=== PATIENT | male | born 1965 | race Caucasian/White ===

== ENCOUNTER 2017-10-25 20:06 | Inpatient (IN) | payer OTHER ==
[2017-10-25 20:42] VITALS: BMI 25.0
[2017-10-25] MEDS ORDERED: METHADONE HCL 10 MG TABLET (FOR DETOX USE ONLY) PO ONE ×2 (23:00→23:17)
--- NOTE | 2017-10-25 23:06 | HP ---
COWS - Scale Resting Pulse: 1= [place] 81-100 Sweatin=Flushed/Facial Moisture Restless Observation: 3= Extraneous Movement Pupil Size: 1= Pupils >than Normal Bone or Joint Aches: 1= Mild Discomfort Runny Nose/ Eye Tearin= Runny Nose/Eyes GI Upset > 30mins: 3= Vomiting/Diarrhea Tremor Observation: 2= Slight Tremor Visible Yawning Observation: 1= 1-2x During Session Anxiety or Irritability: 2=Irritable/Anxious Goose Flesh Skin: 3=Piloerection COWS Score: 21 CIWA Score - CIWA Score Nausea/Vomitin Muscle Tremors: 4-Moderate,w/Arms Extend Anxiety: 4-Mod. Anxious/Guarded Agitation: 3 Paroxysmal Sweats: 4-Forehead w/Sweat Beads Orientation: 1-Uncertain about Date Tacttile Disturbances: 0-None Auditory Disturbances: 2-Mild Harshness/Frighten Visual Disturbances: 2-Mild Sensitivity Headache: 4-Moderately Severe CIWA-Ar Total Score: 27 Admission [facility] - HPI Chief Complaint: "I dont feel well, I feel sick, I am going through withdrawal" Allergies/Adverse Reactions: Allergies Allergy/AdvReac Type Severity Reaction Status Date / Time No Known Allergies Allergy Verified 09/21/15 09:18 History of Present Illness: 52 yo male with hx of heroin, cocaine, nicotine and alcohol dependence is here seeking detox. PMHX: left hip replacement, unsteady gait, urinary incontinence , BPH, depression, anxiety, HTN and GERD, +HIV CD4: 432. Denies suicidal / homicidal ideation, last suicide attempt three years ago. Longest period of sobriety 3 years. Last detox at [facility] 2015. Exam Limitations: No Limitations - Ebola screening Have you traveled outside of the country in the last 21 days: No Have you had contact with anyone from an Ebola affected area: No Have you been sick,other than usual withdrawal symptoms: No Do you have a fever: Yes - Review of Systems Constitutional: Chills, Loss of Appetite, Changes in sleep, Weakness, Unintentional Wgt. Loss (25 lbs) EENT: reports: Double Vision, Other (reports gets lock jaw when withdrawing from heroin) Respiratory: reports: No Symptoms reported Cardiac: reports: No Symptoms Reported GI: reports: Nausea, Poor Appetite, Poor Fluid Intake, Vomiting : reports: Incontinence (wears diapers at night) Musculoskeletal: reports: Back Pain, Other (uses a power chair to get around outdoors) Integumentary: reports: Other (skin lesions from skin irritaiton pn face) Neuro: reports: No Symptoms reported Hematology: reports: No Symptoms Reported Psychiatric: reports: Orientated x3, Agitated, Anxious, Depressed Other Systems: Reviewed and Negative Patient History - Patient Medical History Hx Anemia: No Hx Asthma: No Hx Chronic Obstructive Pulmonary Disease (COPD): No Hx Cancer: No Hx Cardiac Disorders: No Hx Congestive Heart Failure: No Hx Hypertension: No Hx Hypercholesterolemia: No Hx Pacemaker: No HX Cerebrovascular Accident: No Hx Seizures: No Hx Dementia: No Hx Diabetes: No Hx Gastrointestinal Disorders: Yes (GERD ON NEXIUM) Hx Liver Disease: No Hx Genitourinary Disorders: No Hx Sexually Transmitted Disorders: No Hx Renal Disease (ESRD): No Hx Thyroid Disease: No Hx Human Immunodeficiency Virus (HIV): No (NEGATIVE HX) Hx Hepatitis C: No Hx Depression: Yes Hx Suicide Attempt: No (DENIES) Hx Bipolar Disorder: No Hx Schizophrenia: No - Patient Surgical History Past Surgical History: Yes Hx Neurologic Surgery: No Hx Cataract Extraction: No Hx Cardiac Surgery: No Hx Lung Surgery: No Hx Breast Surgery: No Hx Breast Biopsy: No Hx Abdominal Surgery: No Hx Appendectomy: No Hx Cholecystectomy: No Hx Genitourinary Surgery: No Hx Section: No Hx Orthopedic Surgery: Yes (LEFT HIP REPLACEMENT SURGERY 01/2015) Hx Hysterectomy: No Anesthesia Reaction: No - PPD History Previous Implant?: Yes Documented Results: Negative w/o proof Date: 09/23/15 PPD to be Administered?: Yes - Reproductive History Patient is a Female of Child Bearing Age (11 -55 yrs old): No - Smoking Cessation Smoking history: Current every day smoker Have you smoked in the past 12 months: Yes Aproximately how many cigarettes per day: 6 Hx Chewing Tobacco Use: No Initiated information on smoking cessation: Yes 'Breaking Loose' booklet given: 10/25/17 - Substance & Tx. History Hx Alcohol Use: Yes Substance Use Type: Alcohol, Cocaine, Heroin Hx Substance Use Treatment: Yes ([facility] 2015) Family Disease History - Family Disease History Family History: Unremarkable Admission Physical Exam BHS - Vital Signs Vital Signs: Vital Signs - 24 hr 10/25/17 20:40 Temperature 97.2 F L Pulse Rate 97 H Respiratory 20 Rate Blood Pressure 136/77 - Physical General Appearance: Yes: Mild Distress, Tremorous, Irritable, Sweating, Anxious HEENTM: Yes: EOMI, Hearing grossly Normal, Normal ENT Inspection, Normocephalic , Normal Voice, Pharynx Normal, Tm's normal, Other (uses glasses) Respiratory: Yes: Chest Non-Tender, Lungs Clear, Normal Breath Sounds, No Respiratory Distress, No Accessory Muscle Use Neck: Yes: No masses,lesions,Nodules, Trachea in good position Breast: Yes: Breast Exam Deferred Cardiology: Yes: Within Normal Limits, Regular Rhythm, Regular Rate, S1, S2 Abdominal: Yes: Normal Bowel Sounds, Non Tender, Flat, Soft Genitourinary: Yes: Within Normal Limits Back: Yes: Normal Inspection Musculoskeletal: Yes: Joint Stiffness (left hip), Other (unsteady gait) Extremities: Yes: Normal Capillary Refill, Normal Inspection, Non-Tender Neurological: Yes: manager procurement II-XII NML intact, Fully Oriented, Motor Strength 5/5, Depressed Affect Integumentary: Yes: Normal Color, Dry, Warm, Other (multiple lesion on face in different healing pattern) Lymphatic: Yes: Within Normal Limits - Diagnostic (1) Difficulty walking Current Visit: Yes Status: Acute (2) HTN (hypertension) Current Visit: Yes Status: Acute Qualifiers: Hypertension type: essential hypertension Qualified Code(s): I10 - Essential (primary) hypertension (3) HIV (human immunodeficiency virus infection) Current Visit: Yes Status: Chronic (4) BPH (benign prostatic hyperplasia) Current Visit: Yes Status: Acute Qualifiers: Lower urinary tract symptom detail: unspecified (5) Urinary incontinence Current Visit: Yes Status: Chronic Qualifiers: Urinary Incontinence type: unspecified incontinence Qualified Code(s): R32 - Unspecified urinary incontinence (6) Skin lesion of face Current Visit: Yes Status: Acute (7) Opioid dependence with withdrawal Current Visit: Yes Status: Acute (8) GERD (gastroesophageal reflux disease) Current Visit: Yes Status: Chronic Qualifiers: Esophagitis presence: without esophagitis Qualified Code(s): K21.9 - Gastro -esophageal reflux disease without esophagitis (9) History of left hip replacement Current Visit: Yes Status: Chronic (10) Alcohol dependence with withdrawal Current Visit: Yes Status: Acute Qualifiers: Complication of substance-induced condition: uncomplicated Qualified Code(s ): F10.230 - Alcohol dependence with withdrawal, uncomplicated (11) Chronic pain Current Visit: Yes Status: Chronic Cleared for Admission BHS - Detox or Rehab Detox Regimen/Protocol: Methadone/Librium BHS Breath Alcohol Content Breath Alcohol Content: 0 Urine Drug Screen - Results Drug Screen Negative: Yes Urine Drug Screen Results: MARIANNE-Cocaine, OPI-Opiates, MTD-Methadone, TCA- Tricyclic Antidepress, OXY-Oxycodone
[2017-10-25] MEDS ORDERED: ACETAMINOPHEN 325 MG TABLET (FP) PO PRN (23:17)
[2017-10-25] MEDS ORDERED: MENTHOL/PHENOL 1 EACH UD MM PRN (23:17)
[2017-10-25] MEDS ORDERED: MAGNESIUM CITRATE 300 ML BOTTLE PO PRN (23:17)
[2017-10-25] MEDS ORDERED: NICOTINE POLACRILEX 2 MG GUM BC PRN (23:17)
[2017-10-25] MEDS ORDERED: chlordiazePOXIDE HCL 25 MG CAPSULE PO ONE (23:17)
[2017-10-25] MEDS ORDERED: MAGNESIUM HYDROX 2400MG/30ML ORAL SUSPENSION 30 ML CUP PO PRN (23:17)
[2017-10-25] MEDS ORDERED: guaiFENesin/D-METHORPHAN HB 10 ML UNIT-DOSE CUPS PO PRN (23:17)
[2017-10-25] MEDS ORDERED: LOPERAMIDE HCL 2 MG CAPSULE PO PRN (23:17)
[2017-10-25] MEDS ORDERED: P-EPHED 60MG/TRIPROLIDI 2.5MG TABLET PO PRN (23:17)
[2017-10-25] MEDS ORDERED: IBUPROFEN 400 MG TABLET (FP) PO PRN (23:17)
[2017-10-26] MEDS: chlordiazePOXIDE HCL 25 MG CAPSULE PO SCH ×5 (00:37→22:05)
[2017-10-26] MEDS: BACITRACIN 15 GM TUBE TOPICAL OINTMENT TP SCH ×3 (01:31→22:05)
[2017-10-26 02:23] LABS: URINE APPEARANCE CLEAR; URINE BILIRUBIN NEGATIVE (NEGATIVE); URINE BLOOD NEGATIVE (NEGATIVE); URINE COLOR YELLOW; URINE GLUCOSE (UA) NEGATIVE (NEGATIVE); URINE KETONE TRACE (NEGATIVE); URINE LEUK ESTERASE NEGATIVE (NEGATIVE); URINE NITRITE NEGATIVE (NEGATIVE)
[2017-10-26 02:31] LABS: URINE PROTEIN 1+ (NEGATIVE)
[2017-10-26 02:34] LABS: CALCIUM OXALATE CRYSTALS RARE /hpf (NONE SEEN); EPI CELLS RARE /HPF (FEW); URINE MUCUS FEW
[2017-10-26] MEDS ORDERED: BACITRACIN 0.9 GM PACKET ONE (09:19)
--- NOTE | 2017-10-26 09:39 | PN ---
[facility] CIWA - CIWA Score Nausea/Vomitin Muscle Tremors: 3 Anxiety: 3 Agitation: 3 Paroxysmal Sweats: 1-Minimal Palms Moist Orientation: 0-Oriented Tacttile Disturbances: 1-Very Mild Itch/Numbness Auditory Disturbances: 1-Very Mild Visual Disturbances: 0-None Headache: 2-Mild CIWA-Ar Total Score: 17 BHS COWS - Scale Resting Pulse: 0= NE 80 or Below Sweatin= Chills/Flushing Restless Observation: 3= Extraneous Movement Pupil Size: 1= Pupils >than Normal Bone or Joint Aches: 2= Severe Diffuse Aches Runny Nose/ Eye Tearin= Runny Nose/Eyes GI Upset > 30mins: 3= Vomiting/Diarrhea Tremor Observation of Outstretched Hands: 2= Slight Tremor Visible Yawning Observation: 1= 1-2x During Session Anxiety or Irritability: 2=Irritable/Anxious Goose Flesh Skin: 0=Smooth Skin COWS Score: 17 [facility] Progress Note (SOAP) Subjective: ALERT,IRRITABLE,ANXIOUS,INTERRUPTED SLEEP,TREMOR,PAIN IN THE BODY AND BACK Objective: 10/26/17 09:37 Vital Signs Temperature 98.2 F 10/26/17 06:00 Pulse Rate 72 10/26/17 06:00 Respiratory Rate 18 10/26/17 06:00 Blood Pressure 145/83 10/26/17 06:00 O2 Sat by Pulse Oximetry (%) 10/26/17 09:37 EKG NSR,PROLONG QT NO CHEST PAIN,NO SOB,NO DIZZINESS 10/26/17 09:38 Laboratory Last Values Urine Color Yellow 10/25/17 20:00 Urine Appearance Clear 10/25/17 20:00 Urine pH 6.0 (5.0-8.0) 10/25/17 20:00 Ur Specific [place] 1.019 (1.001-1.035) 10/25/17 20:00 Urine Protein 1+ (NEGATIVE) H 10/25/17 20:00 Urine Glucose (UA) Negative (NEGATIVE) 10/25/17 20:00 Urine Ketones Trace (NEGATIVE) H 10/25/17 20:00 Urine Blood Negative (NEGATIVE) 10/25/17 20:00 Urine Nitrite Negative (NEGATIVE) 10/25/17 20:00 Urine Bilirubin Negative (NEGATIVE) 10/25/17 20:00 Urine Urobilinogen 2.0 mg/dL (0.2-1.0) 10/25/17 20:00 Ur Leukocyte Esterase Negative (NEGATIVE) 10/25/17 20:00 Urine WBC (Auto) 2 /hpf (3-5) 10/25/17 20:00 Urine RBC (Auto) 3 /hpf (0-3) 10/25/17 20:00 Ur Epithelial Cells Rare /HPF (FEW) 10/25/17 20:00 Calcium Oxalate Crystal Rare /hpf (NONE SEEN) 10/25/17 20:00 Urine Mucus Few 10/25/17 20:00 LABS PENDING Assessment: 10/26/17 09:38 WITHDRAWAL SYMPTOM Plan: CONTINUE DETOX
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
[2017-10-26] MEDS ORDERED: METHADONE HCL 10 MG TABLET (FOR DETOX USE ONLY) PO SCH (10:00)
[2017-10-26] MEDS ORDERED: OXYBUTYNIN CHLORIDE 5 MG TABLET PO SCH (10:00)
[2017-10-26] MEDS: TAMSULOSIN HCL 0.4 MG CAP.ER.24H (FP) PO SCH (10:04)
[2017-10-26] MEDS: NAPROXEN 500 MG TABLET (FP) PO SCH ×2 (10:04→22:05)
[2017-10-26] MEDS: amLODIPine BESYLATE 10 MG TABLET (FP) PO SCH (10:04)
[2017-10-26] MEDS: RANITIDINE HCL 150 MG TABLET (FP) PO SCH (10:04)
[2017-10-26] MEDS: PRENATAL VITAMINS W/ FOLIC ACID TABLET (FP) PO SCH (10:04)
[2017-10-26] MEDS: NICOTINE 14 MG/24 HOURS TOPICAL PATCH TD SCH (10:09)
[2017-10-26 10:33] LABS: HEMATOCRIT 31.1 % (35.4-49); MCH 29.1 pg (25.7-33.7); MCHC 32.3 g/dl (32.0-35.9); MEAN CELL VOLUME 90.2 fl (80-96); PLATELET COUNT 249 K/MM3 (134-434); RBC 3.44 M/mm3 (4.00-5.60); RDW 14.5 % (11.9-15.9); WHITE BLOOD COUNT 5.8 K/mm3 (4.0-10.0)
[2017-10-26 11:10] LABS: CHLORIDE 107 mmol/L (98-107); POTASSIUM 3.5 mmol/L (3.5-5.1); SODIUM 143 mmol/L (136-145)
[2017-10-26] MEDS: ELVITEG/COB/EMTRI/TENOF (GENVOYA) TABLET (NF) PO SCH (11:11)
[2017-10-26 11:25] LABS: ALBUMIN 3.7 g/dl (3.4-5.0); ALK PHOS 74 U/L (45-117); ANION GAP 8 (8-16); BILIRUBIN,TOTAL 0.4 mg/dL (0.2-1.0); BLOOD UREA NITROGEN 15 mg/dL (7-18); CALCIUM 8.8 mg/dL (8.5-10.1); CO2 28 mmol/L (21-32); CREATININE 0.8 mg/dL (0.7-1.3); GLUCOSE,RANDOM 84 mg/dL (74-106); SGOT/AST 33 U/L (15-37); SGPT/ALT 29 U/L (12-78); TOT PROT 6.8 g/dl (6.4-8.2)
--- NOTE | 2017-10-26 11:48 | CONSULT ---
[facility] Psychiatric Consult - Data Date of interview: 10/26/17 Admission source: [facility] Identifying data: This is 52 yo male single father of nine, living alone, on SSI , with history of psychiatric hospitalizations intoxicated with heroin, cocaine , nicotine and alcohol is here seeking detox. Substance Abuse History: - Smoking Cessation. Smoking history: Current every day smoker. Have you smoked in the past 12 months: Yes. Aproximately how many cigarettes per day: 6. Hx Chewing Tobacco Use: No. Initiated information on smoking cessation: Yes. 'Breaking Loose' booklet given: 10/25/17. - Substance & Tx. History. Hx Alcohol Use: Yes. Substance Use Type: Alcohol, Cocaine, Heroin. Hx Substance Use Treatment: Yes ([facility] 2016). Urine Drug Screen Results : MARIANNE-Cocaine, OPI-Opiates, MTD-Methadone, TCA-Tricyclic Antidepress, OXY- Oxycodone Medical History: Patient reports left hip replacement, unsteady gait, urinary incontinence, BPH, HTN and GERD, +HIV CD4: 432. Psychiatric History: Cristian villasenor history of depression, reports suicidal history and psychiatric admission on [address]. Denies suicidal / homicidal ideation, last suicide attempt three years ago. Longest period of sobriety 3 years. Last detox at [facility] 2016. Physical/Sexual Abuse/Trauma History: Denies Additional Comment: Urine Drug Screen Results: MARIANNE-Cocaine, OPI-Opiates, MTD- Methadone, TCA-Tricyclic Antidepress, OXY-Oxycodone. Ambien 10mg po qhs Mental Status Exam - Mental Status Exam Alert and Oriented to: Person Cognitive Function: Fair Patient Appearance: Unkempt Mood: Sad Affect: Flat Patient Behavior: Sedated Speech Pattern: Delayed Voice Loudness: Mildly Soft/Quiet Thought Process: Circumstantial Thought Disorder: Being Controlled Hallucinations: Denies Suicidal Ideation: Denies Homicidal Ideation: Denies Insight/Judgement: Fair Sleep: Difficulty falling asleep Appetite: Fair Muscle strength/Tone: Mild Hypotonicity Gait/Station: Shuffling Additional Comments: Ambien 10mg po qhs Psychiatric Findings - Problem List ([place] 1, 2,3) (1) Alcohol dependence with withdrawal Current Visit: Yes Status: Acute Qualifiers: Complication of substance-induced condition: uncomplicated Qualified Code(s ): F10.230 - Alcohol dependence with withdrawal, uncomplicated (2) Opioid dependence with withdrawal Current Visit: Yes Status: Acute (3) GERD (gastroesophageal reflux disease) Current Visit: Yes Status: Chronic Qualifiers: Esophagitis presence: without esophagitis Qualified Code(s): K21.9 - Gastro -esophageal reflux disease without esophagitis (4) History of left hip replacement Current Visit: Yes Status: Chronic (5) Cocaine dependence with withdrawal Current Visit: No Status: Acute (6) Decreased ambulation status Current Visit: No Status: Chronic Comment: AMBULATES WITH ASSISTIVE DEVICE-- [facility]. - Initial Treatment Plan Initial Treatment Plan: Ambien 10mg po qhs
[2017-10-26] MEDS: SILVER SULFADIAZINE 1% TOP CREAM 50 GM JAR TP SCH ×2 (13:42→22:07)
--- NOTE | 2017-10-26 17:13 | EKG ---
Test Reason : Blood Pressure : / mmHG Vent. Rate : 065 BPM Atrial Rate : 065 BPM P-R Int : 144 ms QRS Dur : 076 ms QT Int : 462 ms P-R-T Axes : 079 044 037 degrees QTc Int : 480 ms NORMAL SINUS RHYTHM PROLONGED QT ABNORMAL ECG NO PREVIOUS ECGS AVAILABLE Confirmed by MOISE HSIEH, SEBASTIEN ([id number]) on 10/26/2017 5:12:42 PM Referred By: Confirmed By:SEBASTIEN PHIPPS MD
[2017-10-26] MEDS: chlordiazePOXIDE HCL 25 MG CAPSULE PO PRN (20:55)
[2017-10-26] MEDS: THIAMINE HCL 100 MG TABLET (FP) PO SCH (22:05)
[2017-10-26] MEDS: ZOLPIDEM TARTRATE 10 MG TABLET (PARK CARE ONLY) PO PRN (22:05)
[2017-10-27] MEDS: chlordiazePOXIDE HCL 25 MG CAPSULE PO PRN ×2 (02:54→12:05)
[2017-10-27] MEDS: chlordiazePOXIDE HCL 25 MG CAPSULE PO SCH ×3 (05:33→17:14)
[2017-10-27] MEDS: TAMSULOSIN HCL 0.4 MG CAP.ER.24H (FP) PO SCH (09:35)
[2017-10-27] MEDS: RANITIDINE HCL 150 MG TABLET (FP) PO SCH (10:03)
[2017-10-27] MEDS: NAPROXEN 500 MG TABLET (FP) PO SCH ×2 (10:03→22:11)
[2017-10-27] MEDS: amLODIPine BESYLATE 10 MG TABLET (FP) PO SCH (10:03)
[2017-10-27] MEDS: METHADONE HCL 5 MG TABLET (FOR DETOX USE ONLY) PO SCH (10:03)
[2017-10-27] MEDS: ELVITEG/COB/EMTRI/TENOF (GENVOYA) TABLET (NF) PO SCH (10:03)
[2017-10-27] MEDS: PRENATAL VITAMINS W/ FOLIC ACID TABLET (FP) PO SCH (10:03)
[2017-10-27] MEDS: BACITRACIN 15 GM TUBE TOPICAL OINTMENT TP SCH ×2 (10:05→22:10)
[2017-10-27] MEDS: NICOTINE 14 MG/24 HOURS TOPICAL PATCH TD SCH (10:05)
[2017-10-27] MEDS: SILVER SULFADIAZINE 1% TOP CREAM 50 GM JAR TP SCH ×2 (10:05→22:14)
--- NOTE | 2017-10-27 10:31 | PN ---
[facility] CIWA - CIWA Score Nausea/Vomitin-No Nausea/No Vomiting Muscle Tremors: 4-Moderate,w/Arms Extend Anxiety: 3 Agitation: 3 Paroxysmal Sweats: 1-Minimal Palms Moist Orientation: 0-Oriented Tacttile Disturbances: 1-Very Mild Itch/Numbness Auditory Disturbances: 0-None Visual Disturbances: 0-None Headache: 1-Very Mild CIWA-Ar Total Score: 13 BHS COWS - Scale Resting Pulse: 1= [place] 81-100 Sweatin= Chills/Flushing Restless Observation: 3= Extraneous Movement Pupil Size: 0= Normal to Room Light Bone or Joint Aches: 2= Severe Diffuse Aches Runny Nose/ Eye Tearin= Runny Nose/Eyes GI Upset > 30mins: 1= Stomach Cramp Tremor Observation of Outstretched Hands: 2= Slight Tremor Visible Yawning Observation: 0= None Anxiety or Irritability: 2=Irritable/Anxious Goose Flesh Skin: 0=Smooth Skin COWS Score: 14 S Progress Note (SOAP) Subjective: sweat tremor anxiety joint ache mild GI upset restlessness irritable Objective: 10/27/17 10:28 Vital Signs Temperature 98.1 F 10/27/17 09:47 Pulse Rate 81 10/27/17 09:47 Respiratory Rate 18 10/27/17 09:47 Blood Pressure 130/86 10/27/17 09:47 O2 Sat by Pulse Oximetry (%) Laboratory Last Values WBC 5.8 K/mm3 (4.0-10.0) D 10/26/17 08:00 RBC 3.44 M/mm3 (4.00-5.60) L 10/26/17 08:00 Hgb 10.0 GM/dL (11.7-16.9) L 10/26/17 08:00 Hct 31.1 % (35.4-49) L 10/26/17 08:00 MCV 90.2 fl (80-96) 10/26/17 08:00 MCH 29.1 pg (25.7-33.7) 10/26/17 08:00 MCHC 32.3 g/dl (32.0-35.9) 10/26/17 08:00 RDW 14.5 % (11.9-15.9) 10/26/17 08:00 Plt Count 249 K/MM3 (134-434) D 10/26/17 08:00 MPV 8.0 fl (7.5-11.1) 10/26/17 08:00 Sodium 143 mmol/L (136-145) 10/26/17 08:00 Potassium 3.5 mmol/L (3.5-5.1) 10/26/17 08:00 Chloride 107 mmol/L (98-107) 10/26/17 08:00 Carbon Dioxide 28 mmol/L (21-32) 10/26/17 08:00 Anion Gap 8 (8-16) 10/26/17 08:00 BUN 15 mg/dL (7-18) 10/26/17 08:00 Creatinine 0.8 mg/dL (0.7-1.3) 10/26/17 08:00 Creat Clearance w eGFR > 60 (>60) 10/26/17 08:00 Random Glucose 84 mg/dL (74-106) D 10/26/17 08:00 Calcium 8.8 mg/dL (8.5-10.1) 10/26/17 08:00 Total Bilirubin 0.4 mg/dL (0.2-1.0) D 10/26/17 08:00 AST 33 U/L (15-37) D 10/26/17 08:00 ALT 29 U/L (12-78) 10/26/17 08:00 Alkaline Phosphatase 74 U/L (45-117) D 10/26/17 08:00 Total Protein 6.8 g/dl (6.4-8.2) D 10/26/17 08:00 Albumin 3.7 g/dl (3.4-5.0) 10/26/17 08:00 Urine Color Yellow 10/25/17 20:00 Urine Appearance Clear 10/25/17 20:00 Urine pH 6.0 (5.0-8.0) 10/25/17 20:00 Ur Specific [place] 1.019 (1.001-1.035) 10/25/17 20:00 Urine Protein 1+ (NEGATIVE) H 10/25/17 20:00 Urine Glucose (UA) Negative (NEGATIVE) 10/25/17 20:00 Urine Ketones Trace (NEGATIVE) H 10/25/17 20:00 Urine Blood Negative (NEGATIVE) 10/25/17 20:00 Urine Nitrite Negative (NEGATIVE) 10/25/17 20:00 Urine Bilirubin Negative (NEGATIVE) 10/25/17 20:00 Urine Urobilinogen 2.0 mg/dL (0.2-1.0) 10/25/17 20:00 Ur Leukocyte Esterase Negative (NEGATIVE) 10/25/17 20:00 Urine WBC (Auto) 2 /hpf (3-5) 10/25/17 20:00 Urine RBC (Auto) 3 /hpf (0-3) 10/25/17 20:00 Ur Epithelial Cells Rare /HPF (FEW) 10/25/17 20:00 Calcium Oxalate Crystal Rare /hpf (NONE SEEN) 10/25/17 20:00 Urine Mucus Few 10/25/17 20:00 RPR Titer Nonreactive (NONREACTIVE) 10/26/17 08:00 Hepatitis C Antibody >11.0 s/co ratio (0.0-0.9) H 10/26/17 08:00 lab noted 10/27/17 10:31 history of + hepatitis c Assessment: 10/27/17 10:31 withdrawal sx hepatitis c + Plan: continue detox encourage seek treatment for hepatitis c health teaching on benefits of treatment and complications of untreated
[2017-10-27] MEDS ORDERED: METHOCARBAMOL 500 MG TABLET PO ONE (10:35)
[2017-10-27] MEDS ORDERED: BACITRACIN 0.9 GM PACKET ONE (10:58)
[2017-10-27] MEDS: cloNIDine HCL 0.1 MG TABLET PO PRN ×2 (10:59→23:49)
[2017-10-27] MEDS: hydrOXYzine PAMOATE 50 MG CAPSULE (FP) PO PRN ×2 (10:59→23:49)
[2017-10-27] MEDS: LIDOCAINE 5% TOPICAL PATCH TP SCH (11:02)
--- NOTE | 2017-10-27 16:13 | EKG ---
Test Reason : Blood Pressure : / mmHG Vent. Rate : 071 BPM Atrial Rate : 071 BPM P-R Int : 154 ms QRS Dur : 082 ms QT Int : 460 ms P-R-T Axes : 076 037 014 degrees QTc Int : 499 ms NORMAL SINUS RHYTHM SEPTAL INFARCT , AGE UNDETERMINED ABNORMAL ECG WHEN COMPARED WITH ECG OF 26-OCT-2017 00:44, SEPTAL INFARCT IS NOW PRESENT NONSPECIFIC T WAVE ABNORMALITY, WORSE IN INFERIOR LEADS NONSPECIFIC T WAVE ABNORMALITY NOW EVIDENT IN ANTERIOR LEADS Confirmed by MYLES RUFF MD ([id number]) on 10/27/2017 4:12:45 PM Referred By: Confirmed By:MYLES RUFF MD
[2017-10-27] MEDS: THIAMINE HCL 100 MG TABLET (FP) PO SCH (22:11)
[2017-10-27] MEDS: chlordiazePOXIDE 5 MG CAPSULE PO SCH (22:11)
[2017-10-27] MEDS: LIDOCAINE PATCH REMOVAL MC SCH (22:11)
[2017-10-27] MEDS: ZOLPIDEM TARTRATE 10 MG TABLET (PARK CARE ONLY) PO PRN (22:11)
[2017-10-28] MEDS: chlordiazePOXIDE HCL 25 MG CAPSULE PO PRN ×3 (03:36→13:45)
[2017-10-28] MEDS: chlordiazePOXIDE 5 MG CAPSULE PO SCH ×3 (05:23→17:39)
[2017-10-28] MEDS: cloNIDine HCL 0.1 MG TABLET PO PRN (08:43)
[2017-10-28] MEDS: TAMSULOSIN HCL 0.4 MG CAP.ER.24H (FP) PO SCH (08:43)
--- NOTE | 2017-10-28 09:41 | PN ---
B[facility] Progress Note (SOAP) Subjective: ALERT,IRRITABLE,ANXIOUS,PAIN IN THE BODY AND BACK Objective: 10/28/17 09:40 Vital Signs Temperature 97.9 F 10/28/17 06:43 Pulse Rate 65 10/28/17 06:43 Respiratory Rate 18 10/28/17 06:43 Blood Pressure 120/75 10/28/17 06:43 O2 Sat by Pulse Oximetry (%) Assessment: 10/28/17 09:40 WITHDRAWAL SYMPTOM Plan: CONTINUE DETOX
[2017-10-28] MEDS: PRENATAL VITAMINS W/ FOLIC ACID TABLET (FP) PO SCH (10:05)
[2017-10-28] MEDS: RANITIDINE HCL 150 MG TABLET (FP) PO SCH (10:06)
[2017-10-28] MEDS: SILVER SULFADIAZINE 1% TOP CREAM 50 GM JAR TP SCH ×2 (10:06→22:05)
[2017-10-28] MEDS: amLODIPine BESYLATE 10 MG TABLET (FP) PO SCH (10:06)
[2017-10-28] MEDS: NAPROXEN 500 MG TABLET (FP) PO SCH ×2 (10:06→22:06)
[2017-10-28] MEDS: METHADONE HCL 5 MG TABLET (FOR DETOX USE ONLY) PO SCH (10:06)
[2017-10-28] MEDS: LIDOCAINE 5% TOPICAL PATCH TP SCH (10:07)
[2017-10-28] MEDS: BACITRACIN 15 GM TUBE TOPICAL OINTMENT TP SCH ×2 (10:07→22:06)
[2017-10-28] MEDS: NICOTINE 14 MG/24 HOURS TOPICAL PATCH TD SCH (10:07)
[2017-10-28] MEDS: ELVITEG/COB/EMTRI/TENOF (GENVOYA) TABLET (NF) PO SCH (10:07)
[2017-10-28] MEDS: FERROUS SO4 325 MG TABLET (FP) PO SCH ×2 (10:08→22:06)
[2017-10-28] MEDS: hydrOXYzine PAMOATE 50 MG CAPSULE (FP) PO PRN (17:39)
[2017-10-28] MEDS: ZOLPIDEM TARTRATE 10 MG TABLET (PARK CARE ONLY) PO PRN (22:06)
[2017-10-28] MEDS: THIAMINE HCL 100 MG TABLET (FP) PO SCH (22:06)
[2017-10-28] MEDS: chlordiazePOXIDE HCL 10 MG CAPSULE PO SCH (22:06)
[2017-10-28] MEDS: LIDOCAINE PATCH REMOVAL MC SCH (22:08)
[2017-10-29] MEDS: hydrOXYzine PAMOATE 50 MG CAPSULE (FP) PO PRN ×4 (01:51→21:33)
[2017-10-29] MEDS: chlordiazePOXIDE HCL 10 MG CAPSULE PO SCH ×3 (05:46→17:35)
[2017-10-29] MEDS ORDERED: METHADONE HCL 10 MG TABLET (FOR DETOX USE ONLY) PO SCH (10:00)
[2017-10-29] MEDS: TAMSULOSIN HCL 0.4 MG CAP.ER.24H (FP) PO SCH (10:16)
[2017-10-29] MEDS: BACITRACIN 15 GM TUBE TOPICAL OINTMENT TP SCH ×2 (10:16→21:34)
[2017-10-29] MEDS: ELVITEG/COB/EMTRI/TENOF (GENVOYA) TABLET (NF) PO SCH (10:17)
[2017-10-29] MEDS: PRENATAL VITAMINS W/ FOLIC ACID TABLET (FP) PO SCH (10:17)
[2017-10-29] MEDS: amLODIPine BESYLATE 10 MG TABLET (FP) PO SCH (10:17)
[2017-10-29] MEDS: FERROUS SO4 325 MG TABLET (FP) PO SCH ×2 (10:17→21:33)
[2017-10-29] MEDS: LIDOCAINE 5% TOPICAL PATCH TP SCH (10:17)
[2017-10-29] MEDS: cloNIDine HCL 0.1 MG TABLET PO PRN ×2 (10:17→21:33)
[2017-10-29] MEDS: NAPROXEN 500 MG TABLET (FP) PO SCH ×2 (10:17→21:33)
[2017-10-29] MEDS: NICOTINE 14 MG/24 HOURS TOPICAL PATCH TD SCH (10:18)
[2017-10-29] MEDS: SILVER SULFADIAZINE 1% TOP CREAM 50 GM JAR TP SCH ×2 (10:18→21:34)
[2017-10-29] MEDS: RANITIDINE HCL 150 MG TABLET (FP) PO SCH (10:18)
[2017-10-29] MEDS: ONDANSETRON *ODT* 4 MG TABLET SL PRN ×2 (12:01→18:42)
[2017-10-29] MEDS: MAG HYDROX/AL HYDROX/SIMETH 30 ML UNIT-DOSE CUP PO PRN (17:34)
--- NOTE | 2017-10-29 18:52 | PN ---
BHS Progress Note (SOAP) Subjective: shakes chills sleep disturbance Objective: 10/29/17 18:51 A & O x 3 Vital Signs Temperature 98.2 F 10/29/17 18:09 Pulse Rate 69 10/29/17 18:09 Respiratory Rate 18 10/29/17 18:09 Blood Pressure 94/60 10/29/17 18:09 O2 Sat by Pulse Oximetry (%) Assessment: 10/29/17 18:51 withdrawal sx Plan: continue detox
[2017-10-29] MEDS: THIAMINE HCL 100 MG TABLET (FP) PO SCH (21:33)
[2017-10-29] MEDS: LIDOCAINE PATCH REMOVAL MC SCH (21:34)
[2017-10-30] MEDS: hydrOXYzine PAMOATE 50 MG CAPSULE (FP) PO PRN ×4 (02:43→22:58)
[2017-10-30] MEDS ORDERED: METHADONE HCL 5 MG TABLET (FOR DETOX USE ONLY) PO SCH (06:00)
[2017-10-30] MEDS ORDERED: BACITRACIN 0.9 GM PACKET ONE (09:11)
[2017-10-30] MEDS: ELVITEG/COB/EMTRI/TENOF (GENVOYA) TABLET (NF) PO SCH (10:05)
[2017-10-30] MEDS: BACITRACIN 15 GM TUBE TOPICAL OINTMENT TP SCH ×2 (10:06→22:04)
[2017-10-30] MEDS: PRENATAL VITAMINS W/ FOLIC ACID TABLET (FP) PO SCH (10:06)
[2017-10-30] MEDS: FERROUS SO4 325 MG TABLET (FP) PO SCH ×2 (10:06→22:02)
[2017-10-30] MEDS: NAPROXEN 500 MG TABLET (FP) PO SCH ×2 (10:06→22:02)
[2017-10-30] MEDS: TAMSULOSIN HCL 0.4 MG CAP.ER.24H (FP) PO SCH (10:06)
[2017-10-30] MEDS: SILVER SULFADIAZINE 1% TOP CREAM 50 GM JAR TP SCH ×2 (10:07→22:04)
[2017-10-30] MEDS: amLODIPine BESYLATE 10 MG TABLET (FP) PO SCH (10:07)
[2017-10-30] MEDS: NICOTINE 14 MG/24 HOURS TOPICAL PATCH TD SCH (10:07)
[2017-10-30] MEDS: RANITIDINE HCL 150 MG TABLET (FP) PO SCH (10:07)
[2017-10-30] MEDS: cloNIDine HCL 0.1 MG TABLET PO PRN ×2 (10:07→22:02)
--- NOTE | 2017-10-30 10:41 | PN ---
[facility] Progress Note (SOAP) Subjective: patient is alert oriented x 3 wants to go to relelation inpatient rehab for recovery Objective: 10/30/17 10:40 Vital Signs Temperature 97.7 F 10/30/17 10:00 Pulse Rate 70 10/30/17 10:00 Respiratory Rate 18 10/30/17 10:00 Blood Pressure 114/75 10/30/17 10:00 O2 Sat by Pulse Oximetry (%) Laboratory Last Values WBC 5.8 K/mm3 (4.0-10.0) D 10/26/17 08:00 RBC 3.44 M/mm3 (4.00-5.60) L 10/26/17 08:00 Hgb 10.0 GM/dL (11.7-16.9) L 10/26/17 08:00 Hct 31.1 % (35.4-49) L 10/26/17 08:00 MCV 90.2 fl (80-96) 10/26/17 08:00 MCH 29.1 pg (25.7-33.7) 10/26/17 08:00 MCHC 32.3 g/dl (32.0-35.9) 10/26/17 08:00 RDW 14.5 % (11.9-15.9) 10/26/17 08:00 Plt Count 249 K/MM3 (134-434) D 10/26/17 08:00 MPV 8.0 fl (7.5-11.1) 10/26/17 08:00 Sodium 143 mmol/L (136-145) 10/26/17 08:00 Potassium 3.5 mmol/L (3.5-5.1) 10/26/17 08:00 Chloride 107 mmol/L (98-107) 10/26/17 08:00 Carbon Dioxide 28 mmol/L (21-32) 10/26/17 08:00 Anion Gap 8 (8-16) 10/26/17 08:00 BUN 15 mg/dL (7-18) 10/26/17 08:00 Creatinine 0.8 mg/dL (0.7-1.3) 10/26/17 08:00 Creat Clearance w eGFR > 60 (>60) 10/26/17 08:00 Random Glucose 84 mg/dL (74-106) D 10/26/17 08:00 Calcium 8.8 mg/dL (8.5-10.1) 10/26/17 08:00 Total Bilirubin 0.4 mg/dL (0.2-1.0) D 10/26/17 08:00 AST 33 U/L (15-37) D 10/26/17 08:00 ALT 29 U/L (12-78) 10/26/17 08:00 Alkaline Phosphatase 74 U/L (45-117) D 10/26/17 08:00 Total Protein 6.8 g/dl (6.4-8.2) D 10/26/17 08:00 Albumin 3.7 g/dl (3.4-5.0) 10/26/17 08:00 Urine Color Yellow 10/25/17 20:00 Urine Appearance Clear 10/25/17 20:00 Urine pH 6.0 (5.0-8.0) 10/25/17 20:00 Ur Specific [place] 1.019 (1.001-1.035) 10/25/17 20:00 Urine Protein 1+ (NEGATIVE) H 10/25/17 20:00 Urine Glucose (UA) Negative (NEGATIVE) 10/25/17 20:00 Urine Ketones Trace (NEGATIVE) H 10/25/17 20:00 Urine Blood Negative (NEGATIVE) 10/25/17 20:00 Urine Nitrite Negative (NEGATIVE) 10/25/17 20:00 Urine Bilirubin Negative (NEGATIVE) 10/25/17 20:00 Urine Urobilinogen 2.0 mg/dL (0.2-1.0) 10/25/17 20:00 Ur Leukocyte Esterase Negative (NEGATIVE) 10/25/17 20:00 Urine WBC (Auto) 2 /hpf (3-5) 10/25/17 20:00 Urine RBC (Auto) 3 /hpf (0-3) 10/25/17 20:00 Ur Epithelial Cells Rare /HPF (FEW) 10/25/17 20:00 Calcium Oxalate Crystal Rare /hpf (NONE SEEN) 10/25/17 20:00 Urine Mucus Few 10/25/17 20:00 RPR Titer Nonreactive (NONREACTIVE) 10/26/17 08:00 Hepatitis C Antibody >11.0 s/co ratio (0.0-0.9) H 10/26/17 08:00 lab noted history of + hepatitis c serum Assessment: 10/30/17 10:40 mild withdrawal sx hepatitis c Plan: medically supervised detox encourage hepatitis c treatment
[2017-10-30] MEDS: MAG HYDROX/AL HYDROX/SIMETH 30 ML UNIT-DOSE CUP PO PRN (18:46)
[2017-10-30] MEDS: LIDOCAINE 5% TOPICAL PATCH TP SCH (20:19)
[2017-10-30] MEDS: THIAMINE HCL 100 MG TABLET (FP) PO SCH (22:02)
[2017-10-30] MEDS: LIDOCAINE PATCH REMOVAL MC SCH (23:48)
[2017-10-31] MEDS: MAG HYDROX/AL HYDROX/SIMETH 30 ML UNIT-DOSE CUP PO PRN (00:29)
[2017-10-31] MEDS ORDERED: hydrOXYzine PAMOATE 50 MG CAPSULE (FP) PO ONE (01:00)
[2017-10-31] MEDS: hydrOXYzine PAMOATE 50 MG CAPSULE (FP) PO PRN ×2 (07:10→15:26)
[2017-10-31] MEDS ORDERED: BACITRACIN 0.9 GM PACKET ONE (08:21)
[2017-10-31] MEDS: ELVITEG/COB/EMTRI/TENOF (GENVOYA) TABLET (NF) PO SCH (10:20)
[2017-10-31] MEDS: amLODIPine BESYLATE 10 MG TABLET (FP) PO SCH (10:20)
[2017-10-31] MEDS: BACITRACIN 15 GM TUBE TOPICAL OINTMENT TP SCH (10:20)
[2017-10-31] MEDS: PRENATAL VITAMINS W/ FOLIC ACID TABLET (FP) PO SCH (10:20)
[2017-10-31] MEDS: NICOTINE 14 MG/24 HOURS TOPICAL PATCH TD SCH (10:21)
[2017-10-31] MEDS: NAPROXEN 500 MG TABLET (FP) PO SCH (10:21)
[2017-10-31] MEDS: FERROUS SO4 325 MG TABLET (FP) PO SCH (10:21)
[2017-10-31] MEDS: LIDOCAINE 5% TOPICAL PATCH TP SCH (10:21)
[2017-10-31] MEDS: RANITIDINE HCL 150 MG TABLET (FP) PO SCH (10:21)
[2017-10-31] MEDS: SILVER SULFADIAZINE 1% TOP CREAM 50 GM JAR TP SCH (10:21)
[2017-10-31] MEDS: TAMSULOSIN HCL 0.4 MG CAP.ER.24H (FP) PO SCH (10:22)
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
[2017-10-31 13:26] VITALS: BP 122/76; PULSE 81; TEMP 98.2
== END 2017-10-31 17:24 | disposition home or self-care (01) | DRG 897 ==
LOC: YASAS 20:06 → Y6N 22:04
PROVIDERS: ADMIT Internal Medicine; ATTEND Internal Medicine
PROC: HZ2ZZZZ Detoxification Services for Substance Abuse Treatment (ICD-10-PCS; principal; 2017-10-25)
DX: F11.23 Opioid dependence with withdrawal (principal); F10.230 Alcohol dependence with withdrawal, uncomplicated; F14.23 Cocaine dependence with withdrawal; B18.2 Chronic viral hepatitis C; Z21 Asymptomatic human immunodeficiency virus [HIV] infection status; I10 Essential (primary) hypertension; K21.9 Gastro-esophageal reflux disease without esophagitis; N40.0 Benign prostatic hyperplasia without lower urinary tract symptoms; D64.9 Anemia, unspecified; Z96.642 Presence of left artificial hip joint; R26.89 Other abnormalities of gait and mobility; Z99.89 Dependence on other enabling machines and devices
CPT/HCPCS: 36415; 80053; 81003; 81015; 85027; 86593; 86803; 87522; 93005; 93010; J0735